=== PATIENT | female | born 1955 | race Native Hawaiian/Other Pacific Islander ===

== ENCOUNTER 2022-06-20 21:36 | Emergency (ER) | payer OTHER ==
[~2022-06-20] VITALS: Ht 167.6 cm; Wt 65.8 kg
[2022-06-20 22:24] LABS: PLATELET COUNT 192 K/uL (152-353)
[2022-06-20 22:39] LABS: POTASSIUM 3.6 mmol/L (3.6-5.2)
[2022-06-21 00:45] VITALS: BP 129/65; TEMP 97.8
[2022-06-21] MEDS ORDERED: FUROSEMIDE20 MG PO (04:15)
[2022-06-21] MEDS ORDERED: MEMA5TAB2 PO (04:16)
[2022-06-21] MEDS ORDERED: MAGNSUS68 PO (04:17)
[2022-06-21] MEDS ORDERED: POTASSIUM CHLO10 MEQ PO (04:19)
[2022-06-21] MEDS ORDERED: TRAZ50TA36 PO (04:19)
[2022-06-21] MEDS ORDERED: ASCO500T18 PO (04:20)
[2022-06-21] MEDS ORDERED: ORAZINC220 MG PO (04:21)
[2022-06-21] MEDS ORDERED: VITAMIN D31000 UNIT PO (04:21)
[2022-06-21] MEDS ORDERED: DONEPEZIL HYDRO10 M1 PO (04:22)
[2022-06-21] MEDS ORDERED: ASPIRIN 81 LOW81 MG PO (04:22)
[2022-06-21] MEDS ORDERED: CORRECTOL100 MG PO (04:23)
== END 2022-06-21 00:50 | disposition still patient (30) ==
LOC: ED 21:36
PROVIDERS: Hospitalist
DX: F25.8 Other schizoaffective disorders (principal); U07.1 COVID-19; Z04.6 Encounter for general psychiatric examination, requested by authority
CPT/HCPCS: 80053; 80164; 81002; 85027; 87635; 93005; 99283; U0003